=== PATIENT | male | born 1990 | race Two or more races ===

== ENCOUNTER → 2023-12-17 | Day surgery (SDC) | payer OTHER ==
[2023-12-12 12:30] LABS: Alanine Aminotransferase 36 U/L (7-40); Alkaline Phosphatase 90 U/L (46-116); Anion Gap 4 (5-15); BUN/Creatinine Ratio 19.2 (10.0-20.0); Blood Urea Nitrogen 19 mg/dL (9-23); Calcium 9.7 mg/dL (8.5-10.1); Carbon Dioxide 31 mmol/L (20-30); Chloride 105 mmol/L (98-107); Glucose 116 mg/dL (74-106); Potassium 4.8 mmol/L (3.5-5.1); Sodium 140 mmol/L (136-145)
[2023-12-12 12:31] LABS: Albumin 4.3 g/dL (3.2-4.8); Aspartate Aminotransferase 26 U/L (13-40); Bilirubin, Total 0.4 mg/dL (0.2-1.0)
[2023-12-12 12:35] LABS: Basophils # (auto) 0.1 10 ^3/uL (0-0.2); Basophils % (auto) 0.6 % (0.0-2.0); Eosinophils # (auto) 0.1 10 ^3/uL (0-0.8); Eosinophils % (auto) 1.5 % (0.0-7.0); Hematocrit 46.8 % (41.0-53.0); Hemoglobin 16.2 g/dL (13.5-17.5); Lymphocytes # (auto) 1.8 10 ^3/uL (0.4-5.4); Lymphocytes % (auto) 20.7 % (10.0-50.0); Mean Corpuscular Hemoglobin 31.2 pg (28.0-32.0); Mean Corpuscular Hgb Conc. 34.5 g/dL (32.0-36.0); Mean Corpuscular Volume 90.5 fL (80.0-100.0); Monocytes # (auto) 0.8 10 ^3/uL (0-1.3); Monocytes % (auto) 8.7 % (0.0-12.0); Neutrophils # (auto) 6.1 10 ^3/uL (1.6-8.6); Neutrophils % (auto) 68.5 % (37.0-80.0); Nucleated Red Blood Cells % 0.1 %; Red Blood Cells 5.17 10^6/uL (4.5-5.90); Red Cell Distribution Width 12.7 % (11.8-14.3); White Blood Cell 8.8 10^3/uL (4.4-10.8)
[2023-12-12 12:46] LABS: Urine Bacteria NONE SEEN /hpf (None Seen); Urine Blood Negative /uL (Negative); Urine Clarity Clear (Clear); Urine Color Yellow (Yellow); Urine Mucus FEW (None Seen); Urine Protein, UAD TRACE (Negative); Urine Specific Gravity 1.029 (1.001-1.035); Urine WBC 3 /hpf (0 - 3); Urine pH 6.5 (5.0-8.0)
[2023-12-12 12:48] LABS: INR 1.01 (0.9-1.15); Partial Thromboplastin Time 28.1 SEC (24.5-34.5); Prothrombin Time 10.6 sec (9.3-11.8)
[~2023-12-17] VITALS: Ht 177.8 cm; Wt 74.8 kg
[~2023-12-17] MED LIST: ACE3T PO; BUPIVACAINE 0.25% INJ 50ML VIAL ONE; DOXAPRAM HCL 20 MG/ML 20ML VIAL INJ IV ONE; DexAMETHasone SOD PHOS 10MG/1ML VIAL INJ ONE; HYDROmorphone HCL 2 MG/ML VL/or syr IV PRN; KETAMINE 50mg/ML 1ml syringe ONE; LIDOCAINE W/ EPINEPHRINE 1% 20ML VIAL ONE; MEPERIDINE HCL (25 MG/ML) 1ML VIAL ONE; METOCLOPRAMIDE HCL 5MG/ml INJ 2ml VIAL IV PRN; MIDAZOLAM HCL 2MG/2ML 2ml VIAL (1mg/ml) ONE; MORPHINE SULFATE INJ 2 MG/ml SYRG IV PRN; ONDANSETRON HCL 4 MG/2 ML VIAL ONE; PROPOFOL 10 MG/ML 20 ML IV ONE; ROCURONIUM 10MG/ML 10ML VIAL IV ONE; SODIUM CHLORIDE LOCK 10 ML ONE; SUCCINYLCHOLINE CHLORIDE 20 MG/ML 10ML VIAL IV ONE; ceFAZolin 2 GM/D5W100ml 100 ML IV ONE; fentaNYL CITRATE 100 MCG/2 ML VL ONE
[2023-12-17 10:40] VITALS: BP 118/82; PULSE 69; RESP 9; O2SAT 98
== END | disposition home or self-care (01) ==
LOC: SUR 06:10
PROVIDERS: ATTEND Surgery
DX: K40.90 Unilateral inguinal hernia, without obstruction or gangrene, not specified as recurrent (principal); I25.2 Old myocardial infarction; F17.210 Nicotine dependence, cigarettes, uncomplicated; Z86.73 Personal history of transient ischemic attack (TIA), and cerebral infarction without residual deficits
CPT/HCPCS: 36415; 49505; 80053; 81001; 85025; 85610; 85730; 86850; 86900; 86901; C1781; J0330; J1100; J1170; J2175; J2250; J2405; J2704; J3010; J3490; 88302